=== PATIENT | male | born 1970 | race Caucasian/White ===

== ENCOUNTER 2020-03-07 08:22 | Outpatient (CLI) | payer OTHER, SELFPAY ==
[2020-03-07 10:02] LABS: Alanine Aminotransferase 36 U/L (4-50); Albumin Level 4.5 g/dL (3.5-5.1); Alkaline Phosphatase 76 U/L (38-126); Anion Gap 6 mmol/L (8-16); Aspartate Amino Transferase 38 U/L (17-59); Bilirubin,Total 1.1 mg/dL (0.2-1.3); Blood Urea Nitrogen 13 mg/dL (9-20); Calcium 9.5 mg/dL (8.4-10.2); Carbon Dioxide 29 mmol/L (22-30); Chloride 104 mmol/L (98-107); Cholesterol 153 mg/dL (0-200); Estimated Glomerular Filt Rate > 60; Glucose 103 mg/dL (75-110); HDL Direct 80 mg/dL; Potassium 3.7 mmol/L (3.4-5.0); Sodium 139 mmol/L (137-145); Triglycerides 58 mg/dL (<150)
[2020-03-07 10:20] LABS: LDL Cholesterol Direct 59 mg/dL
[2020-03-07 10:41] LABS: Prostate Specific Antigen 0.6 ng/mL (< OR = 4.0)
== END 2020-03-07 08:23 | disposition home or self-care (01) ==
PROVIDERS: PCP Internal Medicine; Visit Provider Internal Medicine
DX: E78.5 Hyperlipidemia, unspecified (principal); I10 Essential (primary) hypertension
CPT/HCPCS: 36415; 80053; 80061; 84153; G0103

== ENCOUNTER 2020-09-12 10:07 | Outpatient (CLI) | payer OTHER, SELFPAY ==
[2020-09-12 11:16] LABS: Alanine Aminotransferase 37 U/L (4-50); Albumin Level 4.3 g/dL (3.5-5.1); Alkaline Phosphatase 78 U/L (38-126); Anion Gap 5 mmol/L (8-16); Aspartate Amino Transferase 35 U/L (17-59); Bilirubin,Total 0.8 mg/dL (0.2-1.3); Blood Urea Nitrogen 10 mg/dL (9-20); Calcium 9.6 mg/dL (8.4-10.2); Carbon Dioxide 29 mmol/L (22-30); Chloride 103 mmol/L (98-107); Cholesterol 154 mg/dL (0-200); Estimated Glomerular Filt Rate > 60; Glucose 98 mg/dL (65-110); HDL Direct 78 mg/dL; Potassium 4.3 mmol/L (3.4-5.0); Sodium 137 mmol/L (137-145); Triglycerides 41 mg/dL (<150)
[2020-09-12 11:27] LABS: LDL Cholesterol Direct 58 mg/dL
== END 2020-09-12 10:08 | disposition home or self-care (01) ==
PROVIDERS: PCP Internal Medicine; Visit Provider Internal Medicine
DX: E78.5 Hyperlipidemia, unspecified (principal); I10 Essential (primary) hypertension; Z51.81 Encounter for therapeutic drug level monitoring
CPT/HCPCS: 36415; 80053; 80061

== ENCOUNTER 2020-10-03 10:58 | Outpatient (CLI) | payer OTHER, SELFPAY ==
[2020-10-03 12:07] LABS: Alanine Aminotransferase 35 U/L (4-50); Albumin Level 4.3 g/dL (3.5-5.1); Alkaline Phosphatase 75 U/L (38-126); Anion Gap 7 mmol/L (8-16); Aspartate Amino Transferase 39 U/L (17-59); Bilirubin,Total 0.8 mg/dL (0.2-1.3); Blood Urea Nitrogen 13 mg/dL (9-20); Calcium 9.5 mg/dL (8.4-10.2); Carbon Dioxide 28 mmol/L (22-30); Chloride 99 mmol/L (98-107); Estimated Glomerular Filt Rate > 60; Glucose 96 mg/dL (65-110); Potassium 3.7 mmol/L (3.4-5.0); Sodium 134 mmol/L (137-145)
== END 2020-10-03 10:59 | disposition home or self-care (01) ==
LOC: ANHLAB 11:01
PROVIDERS: PCP Internal Medicine; Visit Provider Internal Medicine
DX: I10 Essential (primary) hypertension (principal); Z51.81 Encounter for therapeutic drug level monitoring; Z79.899 Other long term (current) drug therapy
CPT/HCPCS: 36415; 80053

== ENCOUNTER 2020-11-28 12:30 | Outpatient (RCR) | payer OTHER, SELFPAY ==
--- NOTE | 2020-10-31 14:52 | PTOPEVAL ---
PHYSICAL THERAPY EVALUATION Thank you for referring John Alarcon to [facility].? John was evaluated for the dx of right achilles tendonitis. The patient is scheduled to be seen for therapy? 2 x/week for 4 weeks. Please review, sign, date and return this plan of care MARIN. I agree with and certify that the following plan of care is medically necessary. Referring Physician Date Attending Provider: DO Ino SmythPT Outpatient Evaluation Start: 10/31/20 13:33 Freq: Status: Active Protocol: Document 10/31/20 13:34 MLV (Rec: 10/31/20 14:43 MLV [id number]) Therapy Assessment Status Assessment Status Assessment Status Evaluation Evaluation Information Problem Diagnosis right achilles tendonitis Onset 6 months Cause no injury Additional Evaluation Detail The patient reports having right achilles pain that occurs after working, in evening, that began about 6 months ago and has gotten worse over time. The pain lingers until the next AM. The patient reports this is the first time having trouble at his foot/ankle. 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 Diagnostic Tests X-Rays For This Problem No MRI For This Problem No Other Tests For This Problem No Pain Assessment Timing of Pain Assessment Timing of Pain Assessment Assessment Pain Scale Pain Scale Used Numeric (1 - 10) Self Report Pain Assessment Right Ankle(s) Reported Pain Level 0 Pain Description Cramping,Tightness Pain Frequency Chronic,Intermittent Other Pain Description at achilles tendon; rated a 6- 7 out of 10 in pm Other Pain Aggravating Factors after being on feet all day Pain Behaviors Limping Pain Score Pain Score 0: Self Report Interventions Used Pain Relief Interventions Used By Exercise,Walking Patient Lower Extremity Range of Motion Ankle/Foot Range of Motion Bilateral Foot/Toe Range of Motion Comments left ankle 12' DF, 50' PF, inversion 60', eversion 29', DF with knee bent 30' right ankle 7', PF 48', inversion 53', eversion 24', DF with knee bent 25' Lower Extremity Muscle Strength Testing General Lower Extremity Strength Reason Not Measured WNL/Left,W
--- NOTE | 2020-11-28 13:17 | PTOPEVAL ---
PHYSICAL THERAPY DISCHARGE Thank you for referring John Alarcon to [facility].? The patient has completed 9 PT visits and goals are met. DC PT. Please review, sign, date and return this plan of care MARIN. I agree with and certify the following plan of care. Referring Physician Date Attending Provider: Shakir Zavala DO *PT Outpatient Discharge Start: 10/31/20 13:33 Freq: Status: Active Protocol: Document 11/28/20 12:36 MLV (Rec: 11/28/20 13:10 MLV [id number]) Therapy Assessment Status Assessment Status Assessment Status Discharge Evaluation Information Problem Diagnosis right achilles tendonitis Onset 7 months Cause no injury Additional Evaluation Detail The patient reports having less pain since the eval and should be getting his orthotics within a week. The patient plans to continue his exercises and work with his orthotics for a few weeks before planning a follow up with the MD. The patient feels he is 80% better since the eval for symptoms. Pain Assessment Pain Scale Pain Scale Used Numeric (1 - 10) Self Report Pain Assessment Right Ankle(s) Reported Pain Level 0 Pain Frequency Intermittent Other Pain Description 2 after work shift yesterday Pain Aggravating Factors Walking,Weight Bearing/ Standing Pain Behaviors None Pain Score Pain Score 0: Self Report Interventions Used Interventions Used By Clinicians Electrical Stimulation,Ice, Manual Therapy Techniques, Ultrasound Pain Relief Interventions Used By Exercise,Inactivity/Rest Patient Lower Extremity Range of Motion General Lower Extremity Range of Motion Reason Not Measured WFL/Left,WFL/Right Gross Lower Extremity Range of Motion right ankle motions improved Comments since eval-see below Ankle/Foot Range of Motion Bilateral Foot/Toe Range of Motion Comments left ankle 12' DF, 50' PF, inversion 60', eversion 29', DF with knee bent 30' right ankle 11', PF 59', inversion 53', eversion 24', DF with knee bent 25' Lower Extremity Muscle Strength Testing General Lower Extremity Strength Reason Not Measured WNL/Left,WNL/Right Posture Posture Standin
== END 2020-11-28 15:45 | disposition home or self-care (01) ==
LOC: ANHPT 12:30
PROVIDERS: PCP Internal Medicine; Visit Provider Internal Medicine
DX: M76.60 Achilles tendinitis, unspecified leg (principal)
CPT/HCPCS: 97014; 97022; 97035; 97110; 97140; 97162; G0283

== ENCOUNTER 2020-12-12 01:09 | Day surgery (SDC) | payer OTHER, SELFPAY ==
[2020-12-12 06:18] VITALS: BP 120/80; PULSE 67; RESP 14; TEMP 36.7; O2SAT 99; BMI 18.9
[2020-12-12] MEDS: LACTATED RINGERS 1,000 ML 150 ML IV CONT (06:26)
--- NOTE | 2020-12-12 07:20 | P.PNAN_ITS ---
Anes - Initial Pre Proc Eval Procedure: Operation Date: 12/12/20 07:30 Proposed Procedures p Screening Colonoscopy - Surinder Ken MD Date/Time: 12/12/20 07:20 Surgeon: Surinder Ken MD Pre Op Diagnosis: neoplasm screening Patient Data Age: 50 Gender: M Height: 1.8 m Weight: 61.6 kg Last Vital Signs Temp 98.0 F 12/12/20 06:18 Pulse 67 12/12/20 06:18 Resp 14 12/12/20 06:18 BP 120/80 12/12/20 06:18 Pulse Ox 99 12/12/20 06:18 Allergies Allergy/AdvReac Type Severity Reaction Status Date / Time Sulfa (Sulfonamide Allergy Unknown Rash Verified 12/12/20 06:17 Antibiotics) Home Medications Medication Instructions Recorded Confirmed Type aspirin 81 mg tablet,delayed 81 mg PO DAILY 03/20/19 11/26/20 History release loratadine 10 mg tablet 10 mg PO DAILY 03/20/19 11/26/20 History amlodipine 5 mg tablet See Rx Instructions .ROUTE 08/13/20 11/26/20 Rx .COMPLEX #90 tablet atorvastatin 40 mg tablet 40 mg PO DAILY #90 tablet 08/13/20 11/26/20 Rx Patient hx anesthesia problems: none Family hx anesthesia problems: none Results Review: All pre-operative results and documents have been reviewed as part of the pre-operative evaluation. [facility] Past Medical History Medical History (Updated 12/12/20 @ 07:18 by Hector Fishman MD) Essential (primary) hypertension Hyperlipidemia, unspecified Family History Family History (Updated 03/21/20 @ 13:04 by Yecenia Ford [facility]) Mother Hypertension Cerebrovascular accident Sibling Asthma Father Family history of heart disease in male family member before age 55 Patient's father is Family history of cardiovascular disease Social History Social History Years smoked: 20 Smoking status: Former smoker Tobacco type: cigarettes Alcohol intake: current Drinks per week: 2 Anes - Eval Final PreProcedure Day of Procedure 12/12/20 07:20 Patient weight: normal Heart: regular rate and rhythm Lungs: clear to auscultation Airway: Mallampati scale class II Neurological: alert and oriented Last oral intake: >/= 8 hours ASA classification: II Emergent: no Anesthetic plan: proceed Anesthesia type and monitoring: general GIVS and standard monitoring Results Review: All pre-operative results and documents have been reviewed as part of the pre-operative evaluation. Informed Consent: The patient's anesthetic plan and its attendant risks and benefits were discussed with the patient/family/POA. Questions were solicited and answers provided to the satisfaction of the patient/family/POA.
--- NOTE | 2020-12-12 07:26 | PM.HPGS ---
History of Present Illness History of Present Illness Consent: Risks, benefits, and alternatives have been discussed and questions answered. Patient agrees to proceed with procedure. Chief complaint: neoplasm screening Narrative: John Alarcon is a 50 year old male here for first screening colonoscopy Review of Systems Constitutional: Constitutional: Denies headache(s) and Denies weakness Eyes: Eyes: Denies blurry vision ENT: Reports Normal hearing present, Denies headache(s) and Denies neck pain Cardiovascular: Cardiovascular: Denies chest pain and Denies dyspnea Respiratory: Respiratory: Denies dyspnea Gastrointestinal: Gastrointestinal: Reports no additional gastrointestinal complaints Genitourinary: Genitourinary: Denies dysuria Musculoskeletal: Musculoskeletal: Denies neck pain Integumentary/Breasts: Skin/Breast: Denies dry skin Neurologic: Reports Normal hearing present, Denies headache(s) and Denies weakness Psychiatric: Psychiatric: Denies anxiety Endocrine: Endocrine: Denies change in body appearance Hematologic/Lymphatic: Hematologic/Lymphatic: Denies easy bleeding Allergic/Immunologic: Allergic/Immunologic: Denies urticaria [facility] Past Medical History Medical History (Updated 12/12/20 @ 07:27 by Surinder Ken MD) Colon cancer screening Essential (primary) hypertension Hyperlipidemia, unspecified Family History Family History (Updated 03/21/20 @ 13:[address] [facility]) Mother Hypertension Cerebrovascular accident Sibling Asthma Father Family history of heart disease in male family member before age 55 Patient's father is Family history of cardiovascular disease Social History Social History Years smoked: 20 Smoking status: Former smoker Tobacco type: cigarettes Alcohol intake: current Drinks per week: 2 Meds Home Medications and Allergies Home Medications Medication Instructions Recorded Confirmed Type aspirin 81 mg tablet,delayed 81 mg PO DAILY 03/20/19 11/26/20 History release loratadine 10 mg tablet 10 mg PO DAILY 03/20/19 11/26/20 History amlodipine 5 mg tablet See Rx Instructions .ROUTE 08/13/20 11/26/20 Rx .COMPLEX #90 tablet atorvastatin 40 mg tablet 40 mg PO DAILY #90 tablet 08/13/20 11/26/20 Rx Allergies Allergy/AdvReac Type Severity Reaction Status Date / Time Sulfa (Sulfonamide Allergy Unknown Rash Verified 12/12/20 06:17 Antibiotics) Vital Signs Vital Signs - 24 hr 12/12/20 06:18 Temperature 98.0 F Pulse Rate 67 Respiratory Rate 14 Blood Pressure 120/80 Pulse Oximetry 99 Exam Const: General: comfortable and no acute distress HENMT: General nose exam: Normal nares present Eyes: General: appearance normal, both eyes and all related structures Neck: Neck: no JVD Resp: Auscultation: clear to auscultation bilaterally Cardio: Rate: regular rate Rhythm: regular rhythm GI: Inspection: non-distended GI Palp: Yes Soft to palpation Skin: General skin exam: normal color Neuro: General: gait normal Speech: normal speech Extrem: General: normal to inspection Psych: Mental Status: mental status grossly normal Assessment and Plan Assessment and plan (1) Colon cancer screening: Code(s): Z12.11 - Encounter for screening for malignant neoplasm of colon Status: Acute Assessment and Plan: colonoscopy
[2020-12-12 07:43] VITALS: BP 91/49; PULSE 68; RESP 14; O2SAT 99
[2020-12-12 07:53] VITALS: BP 91/57; PULSE 59; RESP 14; O2SAT 100
[2020-12-12 08:03] VITALS: BP 109/65; PULSE 72; RESP 14; O2SAT 100
== END 2020-12-12 08:15 | disposition home or self-care (01) ==
PROVIDERS: PCP Internal Medicine; Visit Provider Internal Medicine Gastroenterology
PROC: 0DJD8ZZ Inspection of Lower Intestinal Tract, Via Natural or Artificial Opening Endoscopic (ICD-10-PCS; CPT 45378; principal; 2020-12-12 07:30)
DX: Z12.11 Encounter for screening for malignant neoplasm of colon (principal); K64.8 Other hemorrhoids; I10 Essential (primary) hypertension; E78.5 Hyperlipidemia, unspecified; Z87.891 Personal history of nicotine dependence; Z79.82 Long term (current) use of aspirin
CPT/HCPCS: 45378; J2704; J7120

== ENCOUNTER 2021-03-27 10:43 | Outpatient (CLI) | payer BC, SELFPAY ==
[2021-03-27 11:11] LABS: Cholesterol 158 mg/dL (0-200); HDL Direct 80 mg/dL; Triglycerides 44 mg/dL (<150)
[2021-03-27 11:22] LABS: LDL Cholesterol Direct 59 mg/dL
[2021-03-27 11:42] LABS: Prostate Specific Antigen 0.6 ng/mL (< OR = 4.0)
== END 2021-03-27 10:44 | disposition home or self-care (01) ==
LOC: ANHLAB 10:47
PROVIDERS: PCP Internal Medicine; Visit Provider Internal Medicine
DX: E78.5 Hyperlipidemia, unspecified (principal); Z12.5 Encounter for screening for malignant neoplasm of prostate
CPT/HCPCS: 36415; 80061; 84153; G0103

== ENCOUNTER 2021-09-30 11:40 | Outpatient (CLI) | payer BC, SELFPAY ==
[2021-09-30 12:07] LABS: Alanine Aminotransferase 37 U/L (6-50); Albumin Level 4.5 g/dL (3.5-5.1); Alkaline Phosphatase 79 U/L (38-126); Anion Gap 5 mmol/L (8-16); Aspartate Amino Transferase 35 U/L (17-59); Bilirubin,Total 0.9 mg/dL (0.2-1.3); Blood Urea Nitrogen 17 mg/dL (9-20); Calcium 9.6 mg/dL (8.4-10.2); Carbon Dioxide 29 mmol/L (22-30); Chloride 100 mmol/L (98-107); Cholesterol 164 mg/dL (0-200); Estimated Glomerular Filt Rate > 60; Glucose 90 mg/dL (65-110); HDL Direct 79 mg/dL; Potassium 4.2 mmol/L (3.4-5.0); Sodium 134 mmol/L (137-145); Triglycerides 50 mg/dL (<150)
[2021-09-30 12:18] LABS: LDL Cholesterol Direct 61 mg/dL
== END 2021-09-30 11:41 | disposition home or self-care (01) ==
LOC: ANHLAB 11:41
PROVIDERS: PCP Internal Medicine; Visit Provider Nurse Practitioner
DX: E78.5 Hyperlipidemia, unspecified (principal)
CPT/HCPCS: 36415; 80053; 80061

== ENCOUNTER 2022-04-14 15:39 | Outpatient (CLI) | payer BC, SELFPAY ==
[2022-04-14 16:44] LABS: Alanine Aminotransferase 44 U/L (6-50); Albumin Level 4.6 g/dL (3.5-5.1); Alkaline Phosphatase 81 U/L (38-126); Anion Gap 3 mmol/L (8-16); Aspartate Amino Transferase 38 U/L (17-59); Blood Urea Nitrogen 10 mg/dL (9-20); Calcium 9.1 mg/dL (8.4-10.2); Carbon Dioxide 31 mmol/L (22-30); Chloride 103 mmol/L (98-107); Cholesterol 148 mg/dL (0-200); Estimated Glomerular Filt Rate > 60; Glucose 86 mg/dL (65-110); HDL Direct 72 mg/dL; Potassium 4.1 mmol/L (3.4-5.0); Sodium 137 mmol/L (137-145); Triglycerides 59 mg/dL (<150)
[2022-04-14 16:55] LABS: LDL Cholesterol Direct 54 mg/dL
[2022-04-14 17:13] LABS: Prostate Specific Antigen 0.5 ng/mL (< OR = 4.0)
== END 2022-04-14 15:40 | disposition home or self-care (01) ==
LOC: ANHLAB 15:41
PROVIDERS: PCP Internal Medicine; Visit Provider Internal Medicine
DX: Z51.81 Encounter for therapeutic drug level monitoring (principal); I10 Essential (primary) hypertension; E78.5 Hyperlipidemia, unspecified; Z12.5 Encounter for screening for malignant neoplasm of prostate; Z79.899 Other long term (current) drug therapy
CPT/HCPCS: 36415; 80053; 80061; 84153; G0103

== ENCOUNTER 2022-10-14 10:22 | Outpatient (CLI) | payer BC, SELFPAY ==
[2022-10-14 11:43] LABS: Alanine Aminotransferase 37 U/L (6-50); Albumin Level 4.2 g/dL (3.5-5.1); Alkaline Phosphatase 81 U/L (38-126); Anion Gap 2 mmol/L (8-16); Aspartate Amino Transferase 29 U/L (17-59); Bilirubin,Total 0.6 mg/dL (0.2-1.3); Blood Urea Nitrogen 15 mg/dL (9-20); Carbon Dioxide 29 mmol/L (22-30); Chloride 102 mmol/L (98-107); Cholesterol 158 mg/dL (0-200); Estimated Glomerular Filt Rate > 60; Glucose 95 mg/dL (65-110); HDL Direct 76 mg/dL; Potassium 3.5 mmol/L (3.4-5.0); Sodium 133 mmol/L (137-145); Triglycerides 55 mg/dL (<150)
[2022-10-14 11:55] LABS: LDL Cholesterol Direct 68 mg/dL
== END 2022-10-14 10:23 | disposition home or self-care (01) ==
LOC: ANHLAB 10:24
PROVIDERS: PCP Nurse Practitioner; Visit Provider Nurse Practitioner
DX: E78.5 Hyperlipidemia, unspecified (principal)
CPT/HCPCS: 36415; 80053; 80061

== ENCOUNTER 2023-05-12 10:25 | Outpatient (CLI) | payer BC, SELFPAY ==
[2023-05-12 13:56] LABS: Alanine Aminotransferase 48 U/L (6-50); Albumin Level 4.5 g/dL (3.5-5.1); Alkaline Phosphatase 97 U/L (38-126); Anion Gap 1 mmol/L (8-16); Aspartate Amino Transferase 37 U/L (17-59); Bilirubin,Total 0.9 mg/dL (0.2-1.3); Blood Urea Nitrogen 12 mg/dL (9-20); Calcium 9.6 mg/dL (8.4-10.2); Carbon Dioxide 31 mmol/L (22-30); Chloride 105 mmol/L (98-107); Cholesterol 151 mg/dL (0-200); Estimated Glomerular Filt Rate > 60; Glucose 102 mg/dL (65-110); HDL Direct 64 mg/dL; Potassium 3.8 mmol/L (3.4-5.0); Sodium 137 mmol/L (137-145); Triglycerides 60 mg/dL (<150)
[2023-05-12 14:06] LABS: LDL Cholesterol Direct 75 mg/dL
[2023-05-12 14:22] LABS: Thyroid Stimulating Hormone 0.625 uIU/mL (0.465-4.680)
[2023-05-13 12:08] LABS: Prostate Specific Antigen 0.8 ng/mL (< OR = 4.0)
== END 2023-05-12 10:26 | disposition home or self-care (01) ==
LOC: ANHLAB 10:27
PROVIDERS: PCP Nurse Practitioner; Visit Provider Nurse Practitioner
DX: Z12.5 Encounter for screening for malignant neoplasm of prostate (principal); Z13.29 Encounter for screening for other suspected endocrine disorder; E78.5 Hyperlipidemia, unspecified
CPT/HCPCS: 36415; 80053; 80061; 84153; 84443; G0103

== ENCOUNTER 2023-11-25 07:21 | Outpatient (CLI) | payer BC, SELFPAY ==
[2023-11-25 08:09] LABS: Alanine Aminotransferase 60 U/L (6-50); Albumin Level 4.3 g/dL (3.5-5.1); Alkaline Phosphatase 94 U/L (38-126); Anion Gap 5 mmol/L (4-12); Aspartate Amino Transferase 38 U/L (17-59); Bilirubin,Total 0.7 mg/dL (0.2-1.3); Blood Urea Nitrogen 12 mg/dL (9-20); Calcium 9.2 mg/dL (8.4-10.2); Carbon Dioxide 30 mmol/L (22-30); Chloride 102 mmol/L (98-107); Cholesterol 166 mg/dL (0-200); Estimated Glomerular Filt Rate > 60; Glucose 101 mg/dL (65-110); HDL Direct 70 mg/dL; Potassium 3.7 mmol/L (3.4-5.0); Sodium 137 mmol/L (137-145); Triglycerides 80 mg/dL (<150)
[2023-11-25 08:20] LABS: LDL Cholesterol Direct 73 mg/dL
== END 2023-11-25 07:22 | disposition home or self-care (01) ==
PROVIDERS: PCP Nurse Practitioner; Visit Provider Nurse Practitioner
DX: E78.5 Hyperlipidemia, unspecified (principal)
CPT/HCPCS: 36415; 80053; 80061

== ENCOUNTER 2023-12-04 12:21 | Outpatient (CLI) | payer BC, SELFPAY ==
--- NOTE | ~2023-12-04 | XR_ITS ---
EXAM: XR foot RT 2V DATE: 12/04/2023 12:37 HISTORY: GEN PAIN IN FEET, NODULE ON ANT SURFACE MARKED WITH ARROW . COMPARISON: None available. FINDINGS: Normal mineralization. No fracture or dislocation. No lytic or blastic lesion. Mild scatte red degenerative change, most notably at the tarsometatarsal junction and the first MTP joint. Dorsal directed osteophytes at the tarsometatarsal articulation correspond to the marker. No erosion or per iosteal change. Soft tissues within normal limits. IMPRESSION: No acute osseous finding in the right foot. Mild polyarticular osteoarthritis. Reviewed, dictated and finalized at location K. IMPRESSION: No acute osseous finding in the right foot. Mild polyarticular oste oarthritis.
--- NOTE | ~2023-12-04 | XR_ITS ---
EXAMINATION: XR foot LT 2V DATE: 12/04/2023 12:37 INDICATION: Left foot pain. TECHNIQUE: 2 views of left foot were obtained. COMPARISON: None. FINDINGS: There is a bunionette deformity of the fifth digit. No fracture. There is mild osteoarthrit is of second proximal interphalangeal joint. IMPRESSION: 1. Bunionette. 2. Mild osteoarthritis of second proximal interphalangeal joint. Reviewed, dictated and finalized at location A.
== END 2023-12-04 12:22 | disposition home or self-care (01) ==
PROVIDERS: PCP Nurse Practitioner Family; Visit Provider Nurse Practitioner Family
DX: M19.072 Primary osteoarthritis, left ankle and foot (principal); M19.071 Primary osteoarthritis, right ankle and foot; M21.622 Bunionette of left foot
CPT/HCPCS: 73620

== ENCOUNTER 2024-06-01 11:19 | Outpatient (CLI) | payer BC, SELFPAY ==
[2024-06-01 12:06] LABS: Hematocrit 44.8 % (42.0-52.0); Hemoglobin 15.9 g/dL (14.0-18.0); Mean Corpuscular HGB Conc 35.5 g/dl (32-36); Mean Corpuscular Hemoglobin 32.1 pg (26-34); Mean Corpuscular Volume 90.5 fl (80-100); Mean Platelet Volume 11.4 fl (7.4-10.4); Platelet Count Result 228 k/mm3 (150-375); Red Blood Count 4.95 M/mm3 (4.6-6.20); Red Cell Distribution Width 12.9 % (11.5-14.5); White Blood Count 9.1 K/mm3 (4.5-10.0)
[2024-06-01 12:23] LABS: Alanine Aminotransferase 59 U/L (6-50); Albumin Level 4.4 g/dL (3.5-5.1); Alkaline Phosphatase 91 U/L (38-126); Anion Gap 7 mmol/L (4-12); Aspartate Amino Transferase 36 U/L (17-59); Blood Urea Nitrogen 12 mg/dL (9-20); Calcium 9.4 mg/dL (8.4-10.2); Carbon Dioxide 29 mmol/L (22-30); Chloride 102 mmol/L (98-107); Cholesterol 161 mg/dL (0-200); Estimated Glomerular Filt Rate > 60; Glucose 104 mg/dL (65-110); HDL Direct 79 mg/dL; Potassium 4.2 mmol/L (3.4-5.0); Sodium 138 mmol/L (137-145); Triglycerides 66 mg/dL (<150)
[2024-06-01 12:34] LABS: LDL Cholesterol Direct 66 mg/dL
[2024-06-01 12:54] LABS: Prostate Specific Antigen 0.8 ng/mL (< OR = 4.0)
== END 2024-06-01 11:20 | disposition home or self-care (01) ==
LOC: ANHLAB 11:21
PROVIDERS: PCP Nurse Practitioner Family; Visit Provider Nurse Practitioner Family
DX: Z00.00 Encounter for general adult medical examination without abnormal findings (principal); Z12.5 Encounter for screening for malignant neoplasm of prostate; Z13.0 Encounter for screening for diseases of the blood and blood-forming organs and certain disorders involving the immune mechanism; E78.5 Hyperlipidemia, unspecified; J31.0 Chronic rhinitis; I10 Essential (primary) hypertension; M79.673 Pain in unspecified foot; B35.1 Tinea unguium; Z87.891 Personal history of nicotine dependence
CPT/HCPCS: 36415; 80053; 80061; 84153; 85027; G0103

== ENCOUNTER 2024-12-07 11:11 | Outpatient (CLI) | payer BC, SELFPAY ==
[2024-12-07 11:46] LABS: Hematocrit 46.3 % (42.0-52.0); Hemoglobin 16.0 g/dL (14.0-18.0); Mean Corpuscular HGB Conc 34.6 g/dl (32-36); Mean Corpuscular Hemoglobin 31.1 pg (26-34); Mean Corpuscular Volume 89.9 fl (80-100); Platelet Count Result 262 k/mm3 (150-375); Red Blood Count 5.15 M/mm3 (4.6-6.20); White Blood Count 9.5 K/mm3 (4.5-10.0)
[2024-12-07 12:13] LABS: Alanine Aminotransferase 40 U/L (6-50); Albumin Level 4.3 g/dL (3.5-5.1); Alkaline Phosphatase 106 U/L (38-126); Anion Gap 5 mmol/L (4-12); Aspartate Amino Transferase 34 U/L (17-59); Bilirubin,Total 0.9 mg/dL (0.2-1.3); Blood Urea Nitrogen 13 mg/dL (9-20); Calcium 9.3 mg/dL (8.4-10.2); Carbon Dioxide 29 mmol/L (22-30); Chloride 102 mmol/L (98-107); Cholesterol 179 mg/dL (0-200); Estimated Glomerular Filt Rate > 60; Glucose 99 mg/dL (65-110); HDL Direct 69 mg/dL; Potassium 4.2 mmol/L (3.4-5.0); Sodium 136 mmol/L (137-145); Total Protein 7.5 g/dL (6.3-8.2); Triglycerides 128 mg/dL (<150)
== END 2024-12-07 11:12 | disposition home or self-care (01) ==
LOC: ANHLAB 11:14
PROVIDERS: PCP Nurse Practitioner Family; Visit Provider Nurse Practitioner Family
DX: Z00.00 Encounter for general adult medical examination without abnormal findings (principal); I10 Essential (primary) hypertension; E78.5 Hyperlipidemia, unspecified; J31.0 Chronic rhinitis; B35.1 Tinea unguium; M19.071 Primary osteoarthritis, right ankle and foot; M19.072 Primary osteoarthritis, left ankle and foot; M21.612 Bunion of left foot; R74.01 Elevation of levels of liver transaminase levels
CPT/HCPCS: 36415; 80053; 80061; 85027